=== PATIENT | male | born 1985 | race African-American/Black ===

== ENCOUNTER 2020-01-04 12:25 | Emergency (ER) | payer MEDICAID ==
[~2020-01-04] VITALS: Ht 188 cm; Wt 82.0 kg
[2020-01-04] MEDS ORDERED: SODIUM CHLORIDE 0.9% 1,000 ML IV ONE (12:38)
[2020-01-04 13:00] LABS: BASOPHILS % 0.5 % (0.0-2.0); EOSINOPHILS % 0.4 % (0.0-5.0); HEMATOCRIT. 41.9 % (42.0-52.0); HEMOGLOBIN. 14.2 g/dL (14.0-18.0); LYMPHOCYTES % 27.4 % (20.0-50.0); MEAN CORPUSCULAR HEMOGLOBIN 33.2 pg (28.0-32.0); MEAN CORPUSCULAR VOLUME 98.1 fL (80.0-94.0); MEAN PLATELET VOLUME 8.6 fl (7.4-10.4); MONOCYTES % 8.1 % (2.0-8.0); NEUTROPHILS % 63.6 % (40.0-76.0); PLATELET 161 x1000/uL (130-400); RED BLOOD CELL COUNT 4.28 mill/uL (4.7-6.1)
[2020-01-04 13:11] LABS: CHLORIDE 105 mEq/L (98-107)
[2020-01-04 16:34] VITALS: BP 127/68
== END 2020-01-04 16:45 | disposition home or self-care (01) ==
LOC: ER 12:25
DX: R55 Syncope and collapse (principal); E86.0 Dehydration; F17.200 Nicotine dependence, unspecified, uncomplicated
CPT/HCPCS: 36415; 71045; 80053; 83880; 84484; 85025; 93005; 96360; 99285; J7030